=== PATIENT | male | born 1995 | race Caucasian/White ===

== ENCOUNTER 2017-10-31 05:59 | Day surgery (SDC) | payer OTHER ==
[2017-10-20 12:44] VITALS: BMI 24.7
[2017-10-31] MEDS ORDERED: VANCOMYCIN 1,000 MG VIAL (RESTRICTED TO ID ONLY) ONE (07:03)
[2017-10-31] MEDS ORDERED: PROPOFOL 20 ML ONE ×2 (07:07→08:05)
[2017-10-31] MEDS ORDERED: SUCCINYLCHOLINE CHLORIDE 200 MG/10 ML VIAL ONE ×2 (07:08→08:05)
[2017-10-31] MEDS ORDERED: LIDOCAINE HCL/PF 2% SDV 5ML VIAL ONE (07:10)
[2017-10-31] MEDS ORDERED: ONDANSETRON 4 MG/2 ML VIAL ONE (07:10)
[2017-10-31] MEDS ORDERED: DEXAMETHASONE SOD PHOSPHATE 4 MG/1 ML VIAL ONE (07:10)
[2017-10-31] MEDS ORDERED: BUPIVACAINE HCL/PF (5 MG/ML) 30 ML VIAL IJ ONE (07:11)
[2017-10-31] MEDS ORDERED: SODIUM CHLORIDE 0.9% P/F 10 ML VIAL IJ ONE (07:11)
[2017-10-31] MEDS ORDERED: BUPIVACAINE LIPOSOME/PF (EXPAREL) 266 MG/20 ML VIAL ONE (07:11)
[2017-10-31] MEDS ORDERED: MIDAZOLAM HCL 2 MG/2 ML SINGLE DOSE VIAL ONE (07:11)
--- NOTE | 2017-10-31 07:16 | HP ---
History & Physical Update - History History: No Change - Physical Physical: No Change - Assessment Assessment: No Change - Plan Plan: No Change (No change since pre op visit on 10/16/17)
[2017-10-31] MEDS ORDERED: ROCURONIUM BROMIDE 50 MG/5 ML VIAL ONE (08:05)
[2017-10-31] MEDS ORDERED: ceFAZolin SODIUM 1 GM VIAL ONE (08:14)
[2017-10-31] MEDS ORDERED: TRANEXAMIC ACID 1000 MG/10 ML VIAL ONE ×2 (08:17→09:40)
[2017-10-31] MEDS ORDERED: ONDANSETRON 4 MG/2 ML VIAL IVPUSH PRN (09:06)
[2017-10-31] MEDS ORDERED: oxyCODONE HCL 5 MG TABLET PO PRN ×2 (09:06)
[2017-10-31] MEDS ORDERED: LACTATED RINGERS SOLUTION 1,000 ML IV SCH (09:15)
[2017-10-31] MEDS ORDERED: BUPIVACAINE HCL/EPINEPHRINE/PF 30 ML VIAL IJ ONE (10:01)
[2017-10-31 10:53] VITALS: TEMP 97.6
--- NOTE | 2017-10-31 11:04 | OP ---
Operative Note - Note: Operative Date: 10/31/17 Pre-Operative Diagnosis: right ACL Rupture Operation: Right knee arthroscopy with ACL reconstruction using autograft Surgeon: Nicolas Lucia Ad Operations Intern: Debra Swanson Anesthesiologist/BALLET DANCER: Leandra Hopkins Anesthesia: General, Local (block) Estimated Blood Loss (mls): 50 Fluid Volume Replaced (mls): 800 Operative Report Dictated: Yes
--- NOTE | 2017-10-31 11:07 | SURG ---
Surgery Applications Support Specialist Note Applications Support Specialist: Debra Swanson PA-C Date of Service: 10/31/17 Diagnosis: right knee ACL rupture Procedure: Right knee arthroscopy with ACL reconstruction using autograft I was present for the entirety of the operative procedure. For further detail, please refer to operative report. Visit type - Case Type Case Type: Scheduled - Emergency Emergency Visit: No - New patient This patient is new to me today: Yes Date on this admission: 10/31/17
[2017-10-31] MEDS ORDERED: oxyCODONE HCL 5 MG TABLET ONE (11:24)
[2017-10-31 12:14] VITALS: BP 138/78; PULSE 82
--- NOTE | 2017-11-05 16:05 | PATH ---
Surgical Pathology Report Patient Name: DACIA LUNA [facility]. Rec. #: [id number] /Age/Gender: 1995 (Age: 22) / M Account: [id number] Location: [facility] AMBULATORY Taken: 10/31/2017 Received: 10/31/2017 Reported: 11/05/2017 Physicians: Nicolas Lucia M.D. Specimen(s) Received RIGHT KNEE SHAVINGS Clinical History Right knee ACL tear Final Diagnosis KNEE, RIGHT, ARTHROSCOPIC SHAVINGS: FIBROSYNOVIAL TISSUE, BONE AND CARTILAGE. Electronically Signed Debra Fletcher M.D. Gross Description Received in formalin, labeled "shavings right knee," is a 4.5 x 3.0 x 0.4 cm. aggregate of acuna-yellow soft tissue fragments. A sales representative leather goods portion is submitted in one cassette. /11/04/2017 [facility]11/04/2017
== END 2017-10-31 12:05 | disposition home or self-care (01) ==
LOC: FASU 05:59
PROVIDERS: ATTEND Orthopaedic Surgery
PROC: 0MRN47Z Replacement of Right Knee Bursa and Ligament with Autologous Tissue Substitute, Percutaneous Endoscopic Approach (ICD-10-PCS; principal; 2017-10-31 08:34)
DX: S83.511A Sprain of anterior cruciate ligament of right knee, initial encounter (principal); X58.XXXA Exposure to other specified factors, initial encounter; Y93.9 Activity, unspecified; Y92.9 Unspecified place or not applicable
CPT/HCPCS: 88304-TC; 94760